=== PATIENT | female | born 1940 | race Caucasian/White ===

== ENCOUNTER 2017-01-23 13:22 | Emergency (ER) | payer SELFPAY ==
--- NOTE | 2017-02-04 07:48 | ER ---
ADMIT: 01/23/2017 RM/LOC: ER [facility] MR#: [id number] [facility] [address] [place], [place] [id number] [address] [place] [address] Emergency Room Report SEX: F AGE: 76 : 1940 DATE: 01/23/2017 TIME: 1322 hours. Please refer to my T-sheet for complete H and P. HISTORY OF PRESENT ILLNESS: Briefly, the patient comes in with chest discomfort for 2 days, fall, dizzy, not feeling well. She actually was brought across by her family members from [place]. She is on a visa. She does visit periodically. PHYSICAL EXAMINATION: VITAL SIGNS: Blood pressure 135/66, pulse 76, respirations 16, temp 97.1 sat 100%. GENERAL: No acute distress. HEENT: Grossly normal. LUNGS: Clear. HEART: Regular. ABDOMEN: Soft. SKIN: No rash. EMERGENCY DEPARTMENT COURSE: CBC normal. Chemistries, normal except potassium of 3.6, glucose 130. Troponin negative. UA normal except 2 red cells. EKG is sinus rhythm, no changes. Chest x-ray negative. We gave her a L normal of saline bolus. She felt much better, had a long discussion, and was ready for discharge. ASSESSMENT: 1. Chest pain, atypical. 2. Weakness, improved. PLAN: Follow up with her primary. Return if worse. Fluids and Tylenol. Amor Leary MD/ willem JOB #: [id number] CC: Amor Leary MD, Attending Physician Nixon Wilson MD, Family Physician
== END 2017-01-23 15:25 | disposition home or self-care (01) ==
LOC: ER 13:22
DX: R07.89 Other chest pain (principal); R53.1 Weakness; Z90.710 Acquired absence of both cervix and uterus